=== PATIENT | female | born 1990 | race Caucasian/White ===

== ENCOUNTER → 2019-09-03 10:59 | Outpatient (BNVA) | payer SELFPAY | PROVIDERS: Family Provider Nurse Practitioner Family; PCP Nurse Practitioner Family; Visit Provider Specialist | DX: F90.9 Attention-deficit hyperactivity disorder, unspecified type (principal); F17.210 Nicotine dependence, cigarettes, uncomplicated | CPT/HCPCS: 99213 ==

== ENCOUNTER → 2020-02-10 11:00 | Outpatient (BNVA) | payer OTHER, SELFPAY | PROVIDERS: Family Provider Nurse Practitioner Family; PCP Nurse Practitioner Family; Visit Provider Nurse Practitioner Family | DX: R48.1 Agnosia (principal); R43.0 Anosmia; J06.9 Acute upper respiratory infection, unspecified; Z20.828 Contact with and (suspected) exposure to other viral communicable diseases; U07.1 COVID-19 | CPT/HCPCS: 87635 ==

== ENCOUNTER → 2020-03-02 11:11 | Outpatient (BNVA) | payer SELFPAY | PROVIDERS: Family Provider Nurse Practitioner Family; PCP Nurse Practitioner Family; Visit Provider Specialist | DX: F98.8 Other specified behavioral and emotional disorders with onset usually occurring in childhood and adolescence (principal); F17.210 Nicotine dependence, cigarettes, uncomplicated | CPT/HCPCS: 99213 ==

== ENCOUNTER 2020-05-29 10:30 | Emergency (ER) | payer SELFPAY ==
[2020-05-29 10:36] VITALS: BP 109/73; PULSE 81; RESP 17; TEMP 36.3; O2SAT 99; BMI 22.0
[2020-05-29] MEDS: sodium chloride 0.9% 1,000 ML 999 ML IV (11:33)
[2020-05-29 11:34] LABS: Basophils % 0.5 %; Eosinophils # 0.1 10^3/uL (0.0-0.8); Eosinophils % 0.9 %; Hematocrit 42.6 % (37.0-47.0); Hemoglobin 13.5 g/dL (11.5-15.3); Lymphocytes # 1.3 10^3/uL (0.8-4.8); Lymphocytes % 16.4 %; Mean Corpuscular HGB Conc 31.7 g/dL (30.0-36.0); Mean Corpuscular Volume 91.4 fL (81-99); Mean Platelet Volume 12.2 fL (7.4-10.4); Monocytes # 0.4 10^3/uL (0.2-0.9); Monocytes % 5.3 %; Neutrophils # 6.28 10^3/uL (1.8-7.7); Neutrophils % 76.7 %; Nucleated Red Blood Cells % 0 %; Platelet Count 186 10^3/cmm (130-400); Red Blood Count 4.66 10^6/uL (4.1-5.3); Red Cell Distribution Width 14.9 % (12.1-15.1); White Blood Count 8.2 10^3/uL (4.0-10.0)
[2020-05-29 11:45] VITALS: PULSE 56; O2SAT 100
[2020-05-29 12:16] LABS: Alanine Aminotransferase 10 U/L (0-33); Albumin Level 4.7 g/dL (3.5-5.2); Alkaline Phosphatase 73 IU/L (35-105); Aspartate Amino Transferase 13 U/L (0-32); Blood Urea Nitrogen 10 mg/dL (6-20); Calcium 9.4 mg/dL (8.5-10.5); Carbon Dioxide 27 mmol/L (22-29); Chloride 102 mmol/L (98-107); Globulin 2.8 g/dL (1.3-4.6); Glomerular Filtration Rate 84.2 mL/min (90-130); Glucose 87 mg/dL (65-115); Osmolality Calculated 286 mOsm/kg (285-295); Sodium 139 mmol/L (136-145); Total Bilirubin 0.3 mg/dL (0.15-1.2); Total Protein 7.5 g/dL (6.6-8.7)
[2020-05-29 12:53] LABS: Add Urine Microscopic? YES; Bilirubin Urine Neg (Negative); Blood Urine 3+ (Negative); Glucose Urine UA Norm (Normal); Ketones Urine Negative (Negative); Leukocyte Esterase Urine Negative (Negative); Nitrate Urine Negative (Negative); Protein Urine Trace (Negative); Urine Appearance Cloudy (CLEAR); Urine Color Red (Yellow); Urobilinogen Urine 1 mg/dL (Negative); pH Urine 6.5 (5-7)
--- NOTE | 2020-05-29 12:56 | CTR_ITS ---
PROCEDURE INFORMATION: Exam: CT Abdomen And Pelvis Without Contrast Exam date and time: 05/29/2020 1:35 PM Age: 30 years old Clinical indication: Abdominal pain; Left; Patient HX: C/O L flank pain TECHNIQUE: Imaging protocol: Computed tomography of the abdomen and pelvis without contrast. Radiation optimization: All CT scans at this facility use at least one of these dose optimization techniques: automated exposure control; mA and/or kV adjustment per patient size (includes targeted exams where dose is matched to clinical indication); or iterative reconstruction. COMPARISON: No relevant prior studies available. RADIATION DOSE METRICS: Total DLP (mGy-cm): 661.67 FINDINGS: Liver: Normal. No mass. Gallbladder and bile ducts: Normal. No calcified stones. No ductal dilation. Pancreas: Normal. No ductal dilation. Spleen: Normal. No splenomegaly. Adrenal glands: Normal. No mass. Kidneys and ureters: There is a punctate nonobstructing left renal calculus. Stomach and bowel: Colonic constipation is present. Appendix: There has been an appendectomy. Intraperitoneal space: Unremarkable. No free air. No significant fluid collection. Vasculature: Unremarkable. No abdominal aortic aneurysm. Lymph nodes: Unremarkable. No enlarged lymph nodes. Urinary bladder: Unremarkable as visualized. Reproductive: There is an IUD in the uterus. Bones/joints: At the L5-S1 level there is a disc bulge posterior osteophytes resulting in moderate narrowing of the right neural foramen and mild narrowing of the left neural foramen. Soft tissues: Unremarkable. CT/CT abdomen pelvis wo con [id number] IMPRESSION: 1. There is a punctate nonobstructing left renal calculus. 2. Colonic constipation is present. 3. At the L5-S1 level there is a disc bulge posterior osteophytes resulting in moderate narrowing of the right neural foramen and mild narrowing of the left neural foramen. Radiation Dose CTDIVOL = (mGy): DLP = 661.67 (mGy-cm)
[2020-05-29 13:08] LABS: Bacteria Urine 1+ /hpf; Mucus Urine 2+ /hpf; RBC Urine >100 /hpf (0-2); WBC Urine 0-4 /hpf (0-5)
[2020-05-29 13:09] LABS: Add Urine Culture? Yes
[2020-05-29 13:30] LABS: HCG Qualitative Urine. Negative (Negative)
[2020-05-29 13:32] VITALS: BP 105/47; PULSE 50; O2SAT 100
[2020-05-29] MEDS: ondansetron 2 mg/ML SDV 2 mL 4 MG IVP (13:52)
[2020-05-29] MEDS: ketorolac 30 mg/mL INJ IVP (13:52)
--- NOTE | 2020-05-29 14:47 | W.ED.ABDPA2 ---
HPI - Abdominal Pain General: Chief Complaint: Abdominal Pain Stated Complaint: BACK PAIN/POSS KIDNEY STONES Time Seen by Provider: 05/29/20 10:38 Source: patient Mode of arrival: ambulatory Limitations: no limitations History of Present Illness: HPI narrative: 30-year-old female patient presents to the emergency department complaining of left flank pain that radiates around to her left lower quadrant groin area patient states this pain started this a.m. as a dull ache and progressed to a sharp pain. Patient states she is currently on her menses. Patient states that she does not have history of kidney stones but does drink an excessive amount of Mountain Dew. Patient denies any fever. Patient denies any trauma or injury. Patient denies any chest pain or shortness of breath. Patient denies any vomiting but does state the pain makes her feel nauseated. Patient states her only medical history is ADD. Associated Symptoms: Reports nausea; Denies chills, constipation, diarrhea, dysuria, fever(s), syncope and vomiting Review of Systems Const: Denies: fever(s), chills or body aches Eyes: Denies: change in vision ENMT: Denies: throat pain or uvular edema Card: Denies: chest pain, palpitations, irregular heart rhythm, lightheadedness or syncope Resp: Denies: dyspnea, productive cough, non-productive cough or wheezing GI: Reports: abdominal pain and nausea; Denies: vomiting, diarrhea or constipation : Reports: flank pain; Denies: difficulty voiding, dysuria, urinary frequency, urinary urgency or urinary hesitancy Musc: Denies: neck pain, back pain, extremity pain or extremity swelling Skin/Breast: Denies: rash Neuro: Denies: headache(s), numbness in extremities, weakness in extremities, sensory changes, lack of coordination, difficulty walking, dizziness or vertigo Psych: Denies: suicidal ideation or homicidal ideation [facility] ED PFSH: Social History Smoking and tobacco status: current every day smoker cigarettes Packs smoked per day: 0.5 Alcohol intake: current Alcohol intake frequency: holidays/special occasions only History of recent travel: No Physical Exam Const: COMMON NORMALS: no acute distress, patient oriented x3, healthy appearing, alert and well nourished GENERAL APPEARANCE: cooperative, comfortable, well kempt and well developed; not ill appearing ORIENTATION/CONSCIOUSNESS: Yes awake, Yes oriented to person, Yes oriented to place and Yes oriented to time HENMT: COMMON NORMALS: normocephalic, atraumatic, hearing grossly normal bilaterally, external ears normal, EAC's normal, TM's normal bilaterally, Normal external nose present, Normal nasal mucous membranes and turbinates present and moist oral mucous membranes HEAD & SCALP: normal to inspection, normocephalic and atraumatic FACE & SINUS: normal facial exam, sinuses nontender and face symmetric NOSE: Normal external nose present, Normal nares present, Normal nasal mucous membranes and turbinates present, No nasal discharge present and Abnormal external nose present EXTERNAL EAR: Yes external ears normal and Yes mastoids normal EXTERNAL AUDITORY CANAL: EAC's normal TYMPANIC MEMBRANE: TM's normal bilaterally MOUTH: Normal oral and palatal mucosa present, lip normal, tongue normal and Normal salivary glands and ducts present THROAT: posterior oropharynx normal, tonsils normal and uvula midline; no uvular edema Eye: COMMON NORMALS: Equal, round and reactive pupils present, EOMs intact bilaterally, conjunctivae normal, no scleral icterus and no papilledema GENERAL EYE: appearance normal, both eyes and all related structures EYELID: eyelids normal CONJUNCTIVA: Yes conjunctivae normal SCLERA: sclerae normal CORNEA: Yes corneas normal PUPIL: Yes Equal, round and reactive pupils present DIRECT OPHTHALMOSCOPY: Yes no papilledema Neck/C-Spine: COMMON NORMALS: full ROM, no lymphadenopathy, supple, no meningeal signs, no JVD and Thyroid normal GENERAL: Yes normal visual inspection and Yes trachea midline THYROID: Thyroid normal CERVICAL SPINE: Yes cervical ROM normal Lymph: LYMPHATIC: no lymphadenopathy noted and no lymphedema noted Chest: COMMONS NORMALS: normal inspection of the chest and normal palpation of entire chest wall Resp: COMMON NORMALS: normal respiratory effort, No retractions, No use of accessory muscles and clear to auscultation bilaterally EFFORT & INSPECTION: Yes able to speak in complete sentences and Yes symmetric chest movement AUSCULTATION: clear to auscultation bilaterally Cardio: COMMON NORMALS: no JVD, regular rate and regular rhythm RATE: regular rate RHYTHM: regular rhythm GI: COMMON NORMALS: Normal to inspection, nondistended, normoactive bowel sounds present, Soft to palpation, non-tender, No hepatosplenomegaly present, no masses and no bruits INSPECTION: Yes normal to inspection AUSCULTATION: Yes normoactive bowel sounds PALPATION: Yes Soft to palpation and Yes No hepatosplenomegaly present PERCUSSION: normal to percussion RECTAL EXAM: deferred : COMMON NORMALS: Yes no CVA tenderness, Yes normal external appearance, Yes normal appearance of the vagina, Yes normal appearance of the cervix, Yes normal bimanual exam, Yes No adnexal tenderness and Yes no masses BLADDER/KIDNEY EXAM: Yes no CVA tenderness and Yes CVA tenderness BIMANUAL EXAM - VAGINA & UTERUS: Yes normal bimanual exam Back/Pelvis: COMMON NORMALS: no CVA tenderness, thoracic and lumbar spine normal to inspection, no thoracic nor lumbar tenderness, thoraco-lumbar ROM normal and straight leg raise negative bilaterally GENERAL BACK: Yes CVA tenderness CVA tenderness: left THORACIC SPINE/UPPER BACK: Yes normal to inspection LUMBAR SPINE/LOWER BACK: Yes normal to inspection Extremity: COMMON NORMALS: normal to inspection, full ROM and capillary refill normal GENERAL: Yes normal exam except as noted Neuro: COMMON NORMALS: patient oriented x3, CN's II-XII intact bilaterally, moves all extremities, no focal motor deficits, no sensory deficits noted, deep tendon reflexes 2+ bilaterally and gait normal SENSORIUM/ORIENTATION: Yes alert, Yes oriented to person, Yes oriented to place and Yes oriented to time MENINGEAL SIGNS: Yes no meningeal signs CRANIAL NERVES: Yes CN normal except as noted SPEECH: speech normal GAIT: Yes Normal gait present SENSORY EXAM: Yes extremities MOTOR EXAM: 5/5 motor strength present throughout Psych: COMMON NORMALS: mental status grossly normal, Normal thought process present, cooperative, normal affect, speech normal, activity/motor behavior normal, denies hallucinations, denies homicidal ideation and denies suicidal ideation APPEARANCE: Yes grossly normal and Yes well kempt ATTITUDE: Yes calm ACTIVITY/MOTOR BEHAVIOR: Yes appropriate eye contact SPEECH: Yes normal speech THOUGHT PROCESS: Normal thought process present THOUGHT CONTENT: Yes Normal thought content present ATTENTION/CONCENTRATION: Yes attention grossly intact MEMORY/COGNITION: Yes memory grossly intact INSIGHT: Good insight present (Psych) JUDGEMENT: Good judgement present (Psych) Skin: COMMON NORMALS: no rashes or lesions noted, no wounds, turgor normal, no jaundice, no petechiae and no mottling GENERAL SKIN EXAM: no rashes or lesions noted and turgor normal Course Vital Signs: Vital signs: Vital Signs Temperature 97.3 F L 05/29/20 10:36 Pulse Rate 81 05/29/20 10:36 Respiratory Rate 17 05/29/20 10:36 Blood Pressure 109/73 05/29/20 10:36 Pulse Oximetry 99 05/29/20 10:36 MDM - Abdominal Pain MDM Narrative: Medical decision making narrative: Patient is well-appearing nontoxic and in no acute distress. Given patient's presentation as well as physical exam findings I did order a CT for stone protocol. CT reveals [facility] [address] [place] [address] CT Scan Report Signed Patient: Julio Austin #: [id number] : 1990Acct#:[id number] Age/Sex: 30 / FADM Date: 05/29/20 Loc: ERRoom/Bed: Attending Dr: Ordering Provider/Ordering MD: Edilma Marshall NP Date of Service: 05/29/20 Procedure(s): CT abdomen pelvis con [id number] Accession Number(s): [id number] Report Number: [id number] PROCEDURE INFORMATION: Exam: CT Abdomen And Pelvis Without Contrast Exam date and time: 05/29/2020 1:35 PM Age: 30 years old Clinical indication: Abdominal pain; Left; Patient HX: C/O L flank pain TECHNIQUE: Imaging protocol: Computed tomography of the abdomen and pelvis without contrast. Radiation optimization: All CT scans at this facility use at least one of these dose optimization techniques: automated exposure control; mA and/or kV adjustment per patient size (includes targeted exams where dose is matched to clinical indication); or iterative reconstruction. COMPARISON: No relevant prior studies available. RADIATION DOSE METRICS: Total DLP (mGy-cm): 661.67 FINDINGS: Liver: Normal. No mass. Gallbladder and bile ducts: Normal. No calcified stones. No ductal dilation. Pancreas: Normal. No ductal dilation. Spleen: Normal. No splenomegaly. Adrenal glands: Normal. No mass. Kidneys and ureters: There is a punctate nonobstructing left renal calculus. Stomach and bowel: Colonic constipation is present. Appendix: There has been an appendectomy. Intraperitoneal space: Unremarkable. No free air. No significant fluid collection. Vasculature: Unremarkable. No abdominal aortic aneurysm. Lymph nodes: Unremarkable. No enlarged lymph nodes. Urinary bladder: Unremarkable as visualized. Reproductive: There is an IUD in the uterus. Bones/joints: At the L5-S1 level there is a disc bulge posterior osteophytes resulting in moderate narrowing of the right neural foramen and mild narrowing of the left neural foramen. Soft tissues: Unremarkable. CT/CT abdomen pelvis wo con [id number] IMPRESSION: 1. There is a punctate nonobstructing left renal calculus. 2. Colonic constipation is present. 3. At the L5-S1 level there is a disc bulge posterior osteophytes resulting in moderate narrowing of the right neural foramen and mild narrowing of the left neural foramen. Patient does show urine in her blood but patient is on her menses. There is no evidence of infection. Labs do not reveal any concerning findings. Patient was given Toradol Zofran and [place] and did have clinical improvement of pain. Patient will be sent home with a urine strainer short course of pain meds I will have patient follow-up with urology. Also given patient's disc bulge I will have her follow-up with a neurosurgeon for consult. Patient denies any perianal numbness or tingling. Patient denies any loss of bowel or bladder. Patient denies any fever. Patient does not have any injury or trauma to her back. Patient denies any IV drug abuse or history of cancer or hypertension. I did discuss return precautions with patient as well as home care. At this point I feel patient is a for preop for discharge and is medically cleared Lab Data: Labs: Lab Results 05/29/20 05/29/20 05/29/20 Range/Units 11:12 11:12 12:10 WBC 8.2 (4.0-10.0) 10^3/ uL RBC 4.66 (4.1-5.3) 10^6/u L Hgb 13.5 (11.5-15.3) g/dL Hct 42.6 (37.0-47.0) % MCV 91.4 (81-99) fL MCH 29.0 (28.0-34.0) pg MCHC 31.7 (30.0-36.0) g/dL RDW 14.9 (12.1-15.1) % Plt Count 186 (130-400) 10^3/c mm MPV 12.2 H (7.4-10.4) fL Neut % (Auto) 76.7 % Lymph % (Auto) 16.4 % [place] % (Auto) 5.3 % Eos % (Auto) 0.9 % Baso % (Auto) 0.5 % Neut # (Auto) 6.28 (1.8-7.7) 10^3/u L Lymph # (Auto) 1.3 (0.8-4.8) 10^3/u L [place] # (Auto) 0.4 (0.2-0.9) 10^3/u L Eos # (Auto) 0.1 (0.0-0.8) 10^3/u L Baso # (Auto) 0.0 (0.0-0.1) 10^3/u L Nucleated RBC % (a uto) 0 % Nucleated RBCs # 0.0 /100WBC Sodium 139 (136-145) mmol/L Potassium 4.0 (3.5-5.1) mmol/L Chloride 102 (98-107) mmol/L Carbon Dioxide 27 (22-29) mmol/L Anion Gap 14.0 (5-19) BUN 10 (6-20) mg/dL Creatinine 0.8 (0.5-0.9) mg/dL GFR Calculation 84.2 L (90-130) mL/min Glucose 87 (65-115) mg/dL Calculated Osmolal ity 286 (285-295) mOsm/k g Calcium 9.4 (8.5-10.5) mg/dL Total Bilirubin 0.3 (0.15-1.2) mg/dL AST 13 (0-32) U/L ALT 10 (0-33) U/L Alkaline Phosphata se 73 (35-105) IU/L Total Protein 7.5 (6.6-8.7) g/dL Albumin 4.7 (3.5-5.2) g/dL Globulin 2.8 (1.3-4.6) g/dL HCG, Qual Negative (Negative) Urine Color (Yellow) Urine Appearance (CLEAR) Urine pH (5-7) Ur Specific Gravit y (1.005-1.030) Urine Protein (Negative) Urine Glucose (UA) (Normal) Urine Ketones (Negative) Urine Blood (Negative) Urine Nitrate (Negative) Urine Bilirubin (Negative) Urine Urobilinogen (Negative) mg/dL Ur Leukocyte Nayely ase (Negative) Urine RBC (0-2) /hpf Urine WBC (0-5) /hpf Ur Squamous Epith Cells (0-5) /hpf Amorphous Sediment Urine Bacteria (NONE) /hpf Urine Mucus /hpf 05/29/20 Range/Units 12:10 WBC (4.0-10.0) 10^3/ uL RBC (4.1-5.3) 10^6/u L Hgb (11.5-15.3) g/dL Hct (37.0-47.0) % MCV (81-99) fL MCH (28.0-34.0) pg MCHC (30.0-36.0) g/dL RDW (12.1-15.1) % Plt Count (130-400) 10^3/c mm MPV (7.4-10.4) fL Neut % (Auto) % Lymph % (Auto) % [place] % (Auto) % Eos % (Auto) % Baso % (Auto) % Neut # (Auto) (1.8-7.7) 10^3/u L Lymph # (Auto) (0.8-4.8) 10^3/u L [place] # (Auto) (0.2-0.9) 10^3/u L Eos # (Auto) (0.0-0.8) 10^3/u L Baso # (Auto) (0.0-0.1) 10^3/u L Nucleated RBC % (a uto) % Nucleated RBCs # /100WBC Sodium (136-145) mmol/L Potassium (3.5-5.1) mmol/L Chloride (98-107) mmol/L Carbon Dioxide (22-29) mmol/L Anion Gap (5-19) BUN (6-20) mg/dL Creatinine (0.5-0.9) mg/dL GFR Calculation (90-130) mL/min Glucose (65-115) mg/dL Calculated Osmolal ity (285-295) mOsm/k g Calcium (8.5-10.5) mg/dL Total Bilirubin (0.15-1.2) mg/dL AST (0-32) U/L ALT (0-33) U/L Alkaline Phosphata se (35-105) IU/L Total Protein (6.6-8.7) g/dL Albumin (3.5-5.2) g/dL Globulin (1.3-4.6) g/dL HCG, Qual (Negative) Urine Color Red (Yellow) Urine Appearance Cloudy (CLEAR) Urine pH 6.5 (5-7) Ur Specific Gravit y 1.020 (1.005-1.030) Urine Protein Trace (Negative) Urine Glucose (UA) Norm (Normal) Urine Ketones Negative (Negative) Urine Blood 3+ H (Negative) Urine Nitrate Negative (Negative) Urine Bilirubin Neg (Negative) Urine Urobilinogen 1 H (Negative) mg/dL Ur Leukocyte Nayely ase Negative (Negative) Urine RBC >100 H (0-2) /hpf Urine WBC 0-4 H (0-5) /hpf Ur Squamous Epith Cells None (0-5) /hpf Amorphous Sediment Not Reportable Urine Bacteria 1+ H (NONE) /hpf Urine Mucus 2+ /hpf Discharge Plan Discharge Patient Disposition: Home Clinical Impression: Calculus of kidney Condition: Stable Prescriptions: New [place] 5-325 mg tablet 1 tab PO Q6H PRN (Reason: pain) Qty: 14 RF: 0 No Action Midol 500-25 mg Tablet 2 tab PO PRN RF: 0 Excedrin Migraine 250-250-65 mg Tablet 2 tab PO PRN RF: 0 Adderall 15 mg tablet 15 mg PO BID@07,11 RF: 0 Discharge Orders: Discharge ED (Routine); Ordered 05/29/20 Ordered By: Edilma Marshall Referrals: Charmaine Allen APN [Primary Care Provider] - Discharge Diet: Advance as tolerated Discharge Activity: Resume usual activity Activity Restrictions/Additional Instructions: Please strain all urine Please take pain meds as directed Please do not drive or operate heavy machinery while taking Please return with fever unable to urinate, loss of bowel or bladder, new numbness or tingling or any other worrisome symptoms Please follow up with urology and Neuro surgeon - manager case to call with follow up information Coding Level of Care Code ED Control Officer for Ritesh Fwd Exam Comprehensive
[2020-05-29] MEDS: HYDROcodone-acetaminophen 5-325 mg Tablet 1 TAB PO (14:48)
[2020-05-29 14:57] VITALS: BP 114/66; PULSE 56; RESP 20; O2SAT 100
--- NOTE | 2020-05-31 08:36 | DCPLANNER ---
supportive employment case manager had message to scheduled a follow up appointment for patient with Dr. Wan. supportive employment case manager called the office of Dr. Wan, spoke with Palma, gave clinic patients information. supportive employment case manager was told that patients information would be printed and reviewed. Clinic will call patient with appointment information
--- NOTE | 2020-06-01 10:40 | DCPLANNER ---
Patient has a follow up appointment scheduled for May at 11:[address] Wan. Clinic will call patient with appointment information.
--- NOTE | 2020-06-18 13:14 | DCPLANNER ---
Patient had a follow up appointment scheduled for 06.03.[address] Wan - patient did not attend appointment.
== END 2020-05-29 14:55 | disposition home or self-care (01) ==
PROVIDERS: Emergency Provider Registered Nurse; PCP Nurse Practitioner Family
DX: N20.0 Calculus of kidney (principal); F17.210 Nicotine dependence, cigarettes, uncomplicated
CPT/HCPCS: 12345; 74176; 80053; 81001; 81025; 85025; 87086; 96361; 96374; 96375; 99283; J1885; J2405; J7030

== ENCOUNTER → 2020-10-25 08:37 | Outpatient (BNVA) | payer SELFPAY | PROVIDERS: PCP Nurse Practitioner Family; Visit Provider Specialist | DX: F98.8 Other specified behavioral and emotional disorders with onset usually occurring in childhood and adolescence (principal); F17.210 Nicotine dependence, cigarettes, uncomplicated | CPT/HCPCS: 99213 ==

== ENCOUNTER → 2021-01-24 08:52 | Outpatient (BNVA) | payer SELFPAY | PROVIDERS: PCP Nurse Practitioner Family; Visit Provider Specialist | DX: F98.8 Other specified behavioral and emotional disorders with onset usually occurring in childhood and adolescence (principal); R00.2 Palpitations; Z71.89 Other specified counseling | CPT/HCPCS: 99213 ==

== ENCOUNTER → 2021-04-20 12:29 | Outpatient (BNVA) | payer OTHER, SELFPAY | PROVIDERS: PCP Nurse Practitioner Family; Visit Provider Specialist | DX: F98.8 Other specified behavioral and emotional disorders with onset usually occurring in childhood and adolescence (principal) | CPT/HCPCS: 99213 ==